=== PATIENT | male | born 1980 | race Caucasian/White ===

== ENCOUNTER 2017-09-18 09:24 | Emergency (ER) | payer MEDICAID, SELFPAY ==
[2017-09-18 09:26] VITALS: BP 152/67; PULSE 94; RESP 17; TEMP 37.2; O2SAT 98; BMI 21.2
--- NOTE | 2017-09-18 09:44 | ED.DCSUM_ITS ---
- ER Visit Summary Date of Service: 09/18/17 Chief Complaint: Right hand pain after punching a car History of Present Illness: The patient is a 37 M history of prior right hand surgery for metacarpal fracture of the ring finger. 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 He has had multiple episodes of trauma to the right hand. He is right-hand dominant. Patient states they get upset and punched a car and is complaining of pain along the right ring finger metacarpal. Where he had prior surgery. Denies other injuries. This occurred within the last 1 to hours. Physical Examination: Well-appearing male. Vital signs are stable he is afebrile. H EENT exam unremarkable. Lungs clear to auscultation bilaterally. Heart regular rate and rhythm no murmur. Abdomen soft nontender. Left upper and both lower shoulders are unremarkable nontender normal range of motion no deformities. His right shoulder, elbow and wrist are nontender. He has a contracture of his right small finger which is chronically flexed is unable to extend at 280. He has an old surgical scar along the dorsum of the ring metacarpal. He also has tenderness along the ring finger metacarpal. There is no gross bony deformity. He has decreased range of motion of the small finger but also the index long and ring fingers. There are no lacerations. There are no hematomas. He has a strong radial pulse. Skin is intact. Test Results: Right hand x-ray shows no acute abnormality read by myself. There is a orthopedic plate on the ring metacarpal. No acute fracture. There are chronic contractures. Emergency Department Course and Treatment: I discussed and went over the x-ray with the patient. He will be discharged to home. Motrin Tylenol for pain. Ice and elevate. Follow-up with his primary care physician if not improving for repeat evaluation but at this time there is no signs of fracture. Treatment Plan: [] Disposition: Discharge Impression: Acute right hand contusion History of prior right hand ring finger fracture and surgical repair with orthopedic hardware and also chronic right hand contracture This note was generated with [employer] software. It may contain incorrect words, spelling, and punctuation that were not noted in review of the chart prior to signing ED Disposition - Plan for ED Patient: Chief Complaint: Upper Extremity Injury Referrals: Luz Maria Werner PA [Primary Care Provider] -
--- NOTE | 2017-09-18 09:48 | RAD_ITS ---
STUDY: X-RAY - RIGHT HAND REASON FOR EXAM: Male, 37 years old. Pain following injury. TECHNIQUE: 4 view(s) of the hand. COMPARISON: Comparison is made with prior study dated December 27, 2015. FINDINGS: Normal radiocarpal articulation. Normal distal radioulnar joint. Normal visualized carpal bones. Normal carpal articulations Normal carpometacarpal articulation of the thumb. Normal second through fifth carpometacarpal joints. The patient is status post open reduction and internal fixation of the fourth metacarpal with the screw and sideplate fixation device. This is unchanged. Normal metacarpophalangeal joint of the thumb. Normal interphalangeal joint of the thumb. Normal proximal and distal phalanges of the thumb. Normal metacarpophalangeal joints of the second through fifth fingers. Stable flexion deformity at the proximal interphalangeal joint of the fifth digit. Normal phalanges of the second through fifth fingers. The soft tissue structures are unremarkable. RAD/Hand Min 3 Views IMPRESSION: No acute abnormality is seen. Electronically Signed: Brian Jackson MD at 10:25 EDT Tel [phone], Service support ,
--- NOTE | 2017-09-18 10:07 | ED.DEP ---
ED Disposition - Plan for ED Patient: Disposition: Home or Assisted Living Chief Complaint: Upper Extremity Injury Instructions: ED Contusion Upper Ext Referrals: Luz Maria Werner PA [Primary Care Provider] - 1 Week if not improving Additional Instructions: Elevate your right hand. Motrin and Tylenol for pain. Follow-up with your primary care physician if in 1 week this is not improving however today on your x-ray there are no signs of any fracture or dislocation.
[2017-09-18] MEDS: Ibuprofen 600 MG Tablet PO (10:13)
[2017-09-18 10:22] VITALS: PULSE 93; RESP 18; O2SAT 100
--- NOTE | 2017-09-18 10:22 | ED.RN ---
THIS NURSE REVIEWED D/C INSTRUCTIONS WITH PT. PT VERBALIZED UNDERSTANDING OF INSTRUCTIONS. PT DENIES FURTHER NEEDS OR QUESTIONS AT THIS TIME. PT AMBULATES FROM ROOM ON OWN WITHOUT ASSISTANCE FROM STAFF
== END 2017-09-18 10:23 | disposition home or self-care (01) ==
PROVIDERS: Emergency Provider Emergency Medicine; Family Provider Physician Assistant Medical; PCP Physician Assistant Medical
DX: S60.221A Contusion of right hand, initial encounter (principal); M20.091 Other deformity of right finger(s); Z98.890 Other specified postprocedural states; Z72.0 Tobacco use; W22.09XA Striking against other stationary object, initial encounter; Y93.89 Activity, other specified; Y92.89 Other specified places as the place of occurrence of the external cause; Y99.8 Other external cause status
CPT/HCPCS: 73130; 99283

== ENCOUNTER 2017-10-09 11:32 | Emergency (ER) | payer MEDICAID, SELFPAY ==
[2017-10-09 11:33] VITALS: BP 148/82; PULSE 80; RESP 16; TEMP 36.8; O2SAT 98; BMI 20.8
--- NOTE | 2017-10-09 12:11 | RAD_ITS ---
STUDY: X-RAY - RIGHT SHOULDER REASON FOR EXAM: Male, 37 years old. INJURY/PAIN. DOING YARDWORK T HEARD/FELT POP. TECHNIQUE: 4 view(s) of the shoulder. COMPARISON: None. FINDINGS: Normal glenohumeral articulation. Normal acromioclavicular joint. Normal acromion. Normal humeral head and visualized proximal humerus. The soft tissue structures are unremarkable. Normal visualized pulmonary apex. RAD/Shoulder min 2 Views IMPRESSION: Normal x-ray examination of the shoulder. Electronically Signed: Jude Wolf MD at 13:15 EDT Tel , Service support ,
[2017-10-09] MEDS: HYDROcodone Bitartrate/Apap 5/325 Tablet PO (12:23)
--- NOTE | 2017-10-09 13:24 | ED.DCSUM_ITS ---
- ER Visit Summary Date of Service: 10/09/17 Chief Complaint: Right shoulder pain History of Present Illness: The patient is a [address] Werner. He reports that he was out shoveling when he felt a pop in his right shoulder. He has a sharp, throbbing pain that is 10 out of 10 at worst 9 out of 10 currently. Is worsened by lifting. Is taken ibuprofen without relief. He denies any numbness or weakness distally. No other trauma. No fall or MVA. Physical Examination: Vitals: Stable. Afebrile. General: Well-nourished and well-developed. Head: Normocephalic atraumatic. Neck: Supple, no lymphadenopathy. No JVD. Nontender. Cardiovascular: Regular rate and rhythm. No murmurs. Respiratory: No respiratory distress. Clear to auscultation bilaterally. Abdominal: Soft, nontender, nondistended, normal bowel sounds. No guarding, rebound, or peritoneal signs. Back: Nontender. Extremities: Moderate tenderness palpation over the trapezius muscle and over the AC joint. No pain over the deltoid. There is a swollen area on the anterior surface of his shoulder. There is no contusion to suggest hematoma. He has a 2+ radial pulse. He has decreased range of motion secondary to pain active much greater than passive.. Skin: Normal color, no rash. Neurologic: Alert and oriented ?3. Cranial nerves II through XII are intact. Normal strength and sensation. Psych: Normal affect. Test Results: Right shoulder x-ray shows no acute disease. Emergency Department Course and Treatment: Patient was treated with Starrucca p.o. and is resting comfortably. He was placed in a sling. Treatment Plan: An [facility] report was obtained which was negative. He will be discharged naproxen and Starrucca. Instructed to follow-up Dr. Wilman Mejia in 1 week if not improving. Disposition: To home in improved and stable condition. Impression: 1. Right shoulder pain, acute. This note was generated with [employer] dictation software. It may contain incorrect words, spelling, and punctuation that were not noted in review of the chart prior to signing ED Disposition - Plan for ED Patient: Disposition: Home or Assisted Living Chief Complaint: Upper Extremity Injury Instructions: ED Shoulder Pain [facility] Prescriptions: Hydrocodone/Acetaminophen [Starrucca 5-325 Tablet] 1 - 2 each PO 4X/DAY PRN PRN 5 Days #20 tablet PRN Reason: Pain Referrals: Wilman Mejia MD [STAFF PHYSICIAN] - 1 Week if not improving
[2017-10-09 13:38] VITALS: PULSE 79; RESP 16; O2SAT 100
== END 2017-10-09 13:40 | disposition home or self-care (01) ==
LOC: ED 12:47
PROVIDERS: Emergency Provider Emergency Medicine; Family Provider Physician Assistant Medical; PCP Physician Assistant Medical
DX: M25.511 Pain in right shoulder (principal); J45.909 Unspecified asthma, uncomplicated; Z72.0 Tobacco use
CPT/HCPCS: 73030; 99283

== ENCOUNTER 2017-12-30 15:00 | Emergency (ER) | payer MEDICAID, SELFPAY ==
[2017-12-30 15:01] VITALS: BP 120/80; PULSE 86; RESP 16; TEMP 37.3; O2SAT 98; BMI 18.8
--- NOTE | 2017-12-30 15:52 | ED.DCSUM_ITS ---
- ER Visit Summary Date of Service: 12/30/17 Chief Complaint: Dental pain History of Present Illness: The patient is a 37 M who presents with dental pain. He initially broke a tooth about 2 weeks ago. He began to have some swelling last night. He noticed drainage from the tooth bad taste in his mouth and foul odor. He reports subjective fever this morning although did not check temperature. He denies nausea vomiting diarrhea. Physical Examination: Afebrile vitals are normal Moist mucous membranes Patient has widespread dental decay although there is significant focal decay of the right maxillary second and third molar with tenderness on percussion I do not appreciate any drainage currently I do not appreciate focal dental abscess amenable to incision and drainage Heart regular rate and rhythm Lungs clear Test Results: Not indicated Emergency Department Course and Treatment: He is allergic to penicillin. We will treat with clindamycin. He was advised on supportive care. He was advised to follow with a dentist. No worsening symptoms. He was discharged. Treatment Plan: [] Disposition: Discharge Impression: Odontalgia This note was generated with [employer] dictation software. It may contain incorrect words, spelling, and punctuation that were not noted in review of the chart prior to signing ED Disposition - Plan for ED Patient: Chief Complaint: Dental Referrals: Luz Maria Werner PA [Primary Care Provider] -
--- NOTE | 2017-12-30 15:52 | ED.DEP ---
ED Disposition - Plan for ED Patient: Chief Complaint: Dental Instructions: ED Tooth Pain Prescriptions: Clindamycin HCl [Cleocin] 300 mg PO Q8H #30 cap Referrals: Luz Maria Werner PA [Primary Care Provider] -
== END 2017-12-30 16:04 | disposition home or self-care (01) ==
PROVIDERS: Emergency Provider Emergency Medicine; Family Provider Physician Assistant Medical; PCP Physician Assistant Medical
DX: K08.89 Other specified disorders of teeth and supporting structures (principal); K02.9 Dental caries, unspecified; Z72.0 Tobacco use
CPT/HCPCS: 99282

== ENCOUNTER 2018-06-25 12:28 | Emergency (ER) | payer MEDICAID, SELFPAY ==
[2018-06-25 12:28] VITALS: BP 134/79; PULSE 92; RESP 16; TEMP 36.7; O2SAT 98; BMI 20.6
--- NOTE | 2018-06-25 13:03 | RAD_ITS ---
STUDY: X-RAY - RIGHT HAND REASON FOR EXAM: Pain at the base of the fifth digit after a fall. TECHNIQUE: 3 view(s) of the hand. COMPARISON: Radiographs 09/18/2017. FINDINGS: Normal radiocarpal articulation. Normal distal radioulnar joint. Normal visualized carpal bones. Normal carpal articulations Normal carpometacarpal articulation of the thumb. Normal second through fifth carpometacarpal joints. There is an intact orthopedic plate and screws transfixing a healed fourth metacarpal fracture. Normal metacarpophalangeal joint of the thumb. Normal interphalangeal joint of the thumb. Normal proximal and distal phalanges of the thumb. Normal metacarpophalangeal joints of the second through fifth fingers. There are flexion deformities at the proximal interphalangeal joints of the second through fifth digits. Normal phalanges of the second through fifth fingers. The soft tissue structures are unremarkable. RAD/Hand Min 3 Views IMPRESSION: Healed fracture of the fourth metacarpal with intact orthopedic hardware. Flexion deformities of the second through fifth digits. No demonstrated new fracture. Electronically Signed: Wilfredo Tello MD at 13:56 EST Tel , Service support ,
--- NOTE | 2018-06-25 15:02 | ED.VISSUMM ---
- ER Visit Summary Date of Service: 06/25/18 Chief Complaint: Right hand injury History of Present Illness: The patient is a 38 M presents with right hand injury that occurred today after a fall. Patient states he slipped and fell onto his right hand. Patient states pain is throbbing. Patient states he applied ice which made the pain worse. Patient states he applied some heat which seemed to help. Patient states he has chronic paresthesias of his right hand due to prior surgery. Patient denies any head injury or loss of consciousness. Patient denies any other injuries. Physical Examination: All signs are stable. Patient is afebrile. Patient is in no acute distress. Oral mucosa is pink and moist. Neck is supple. Trachea is midline. There is no JVD noted. Heart was regular rate and rhythm. Lungs are clear and equal bilaterally. Musculoskeletal exam reveals tenderness over the right hand. There is no edema or ecchymosis. There is no deformity noted. Range of motion was limited in all motions of the right hand secondary to pain. Capillary refill is less than 2 seconds in all digits. Sensation was diminished to light touch in all digits. The remaining physical exam is within normal limits. Test Results: X-rays of the right hand were obtained. There is no acute fracture. Emergency Department Course and Treatment: Patient was given a cockup splint. Patient was instructed to ice and elevate the right hand. Patient was instructed to follow-up with his primary care physician in 5-7 days. Patient understood and was agreeable with the plan. All questions were answered. Disposition: Discharge home Impression: Right hand contusion This note was generated with [employer] dictation software. It may contain incorrect words, spelling, and punctuation that were not noted in review of the chart prior to signing ED Disposition - Plan for ED Patient: Disposition: Home or Assisted Living Chief Complaint: Upper Extremity Injury Diagnosis: Contusion of right hand, initial encounter Instructions: ED Contusion Upper Ext Referrals: Luz Maria Werner PA [Primary Care Provider] -
--- NOTE | 2018-06-25 15:07 | ED.DCSUM_ITS ---
- ER Visit Summary Date of Service: 06/25/18 Chief Complaint: Right hand injury History of Present Illness: The patient is a 38 M presents with right hand injury that occurred today after a fall. Patient states he slipped and fell onto his right hand. Patient states pain is throbbing. Patient states he a pplied ice which made the pain worse. Patient states he applied some heat which seemed to help. Patient states he has chronic paresthesias of his right hand due to prior surgery. Patient denies any head injury or loss of consciousness. Patient denies any other injuries. Physical Examination: All signs are stable. Patient is afebrile. Patient is in no acute distress. Oral mucosa is pink and moist. Neck is supple. Trachea is midline. There is no JVD noted. Heart was regular rate and rhythm. Lungs are clear and equal bilaterally. Musculoskeletal exam reveals tenderness over the right hand. There is no edema or ecchymosis. There is no deformity noted. Range of motion was limited in all motions of the right hand secondary to pain. Capillary refill is less than 2 seconds in all digits. Sensation was diminished to light touch in all digits. The remaining physical exam is within normal limits. Test Results: X-rays of the right hand were obtained. There is no acute fracture. Emergency Department Course and Treatment: Patient was given a cockup splint. Patient was instructed to ice and elevate the right hand. Patient was instructed to follow-up with his primary care physician in 5-7 days. Patient understood and was agreeable with the plan. All questions were answered. Disposition: Discharge home Impression: Right hand contusion This note was generated with [employer] dictation software. It may contain incorrect words, spelling, and punctuation that were not noted in review of the chart prior to signing ED Disposition - Plan for ED Patient: Disposition: Home or Assisted Living Chief Complaint: Upper Extremity Injury Diagnosis: Contusion of right hand, initial encounter Instructions: ED Contusion Upper Ext Referrals: Luz Maria Werner PA [Primary Care Provider] -
--- OUTSIDE RECORDS SUMMARY | 2018-08-30 10:00 | XMS RPT_ITS ---
:1980 Author Organization OHIP Care Team Providers Name Role Phone REFERRING REFERRING, KB QUILES WO ID~[id number] Primary Care Unavailable MICAELA JOHNSON Attending Unavailable Alphonso, Luz Maria Primary Care Unavailable Ovidio Lundy Attending Unavailable Luz Maria Werner Primary Care Unavailable Jared Lyle Attending Unavailable Luz Maria Werner Primary Care Unavailable Percy Hernandez Attending Unavailable Alphonso Luz Maria Primary Care Unavailable Wiliam Dupree Attending Unavailable PROBLEMS PROBLEMS DATE TYPE CONDITION / CODE ATTENDING STATUS SOURCE 10/09/2017 Unknown M25.519 - Pain in Percy Hernandez Active [place] unspecified [facility] M25.519(ICD-10) Repository PROCEDURES PROCEDURES No Procedure Records FoundRESULTS RESULTS EMERGENCY DEPARTMENT Observed: 06/25/2018 Status: F Source: [place] SUMMARY 3:08 PM [facility] REPOSITORY [facility] Medical Records Department [address] [place] [address] Emergency Department Summary 06/25/18 1502 MR#: [id number] Acct: [id number] Name: ANALISA FERNANDEZ Jr. Rep #: [id number] : 1980 38 From: Ovidio Lundy DO PCP: Luz Maria Werner Status: REG ER - ER Visit Summary Date of Service: 06/25/18 Chief Complaint: Right hand injury History of Present Illness: The patient is a 38 M presents with right hand injury that occurred today after a fall. Patient states he slipped and fell onto his right hand. Patient states pain is throbbing. Patient states he applied ice which made the pain worse. Patient states he applied some heat which seemed to help. Patient states he has chronic paresthesias of his right hand due to prior surgery. Patient denies any head injury or loss of consciousness. Patient denies any other injuries. Physical Examination: All signs are stable. Patient is afebrile. Patient is in no acute distress. Oral mucosa is pink and moist. Neck is supple. Trachea is midline. There is no JVD noted. Heart was regular rate and rhythm. Lungs are clear and equal bilaterally. Musculoskeletal exam reveals tenderness over the right hand. There is no edema or ecchymosis. There is no deformity noted. Range of motion was limited in all motions of the right hand secondary to pain. Capillary refill is less than 2 seconds in all digits. Sensation was diminished to light touch in all digits. The remaining physical exam is within normal limits. Test Results: X-rays of the right hand were obtained. There is no acute fracture. Emergency Department Course and Treatment: Patient was given a cockup splint. Patient was instructed to ice and elevate the right hand. Patient was instructed to follow-up with his primary care physician in 5-7 days. Patient understood and was agreeable with the plan. All questions were answered. Disposition: Discharge home Impression: Right hand contusion This note was generated with [employer] dictation software. It may contain incorrect words, spelling, and punctuation that were not noted in review of the chart prior to signing ED Disposition - Plan for ED Patient: Disposition: Home or Assisted Living Chief Complaint: Upper Extremity Injury Diagnosis: Contusion of right hand, initial encounter Instructions: ED Contusion Upper Ext Referrals: Luz Maria Werner PA [Primary Care Provider] - What to do if you have Problems For any increased pain, shortness of breath, bleeding, nausea or vomiting, chest pain, or any unexpected problems, contact your Primary Care Provider. Call [facility] ([phone]) or report to the closest Emergency Room. Call 911 if necessary. 06/25/18 1508 <Electronically signed by Ovidio Lundy DO> Date Ovidio Lundy DO Cosigner Signature (If Indicated): Date CC: Luz Maria Werner HAND MIN 3 VIEWS Observed: 06/25/2018 Status: F Source: [place] 12:55 PM [facility] REPOSITORY [facility] Imaging Services [address] [place] [address] Hand Min 3 Views MR#: [id number] Acct: [id number] Name: ANALISA FERNANDEZ Kina Rep #: [id number] : 1980 M 38 From: Wilfredo Tello MD PCP: Luz Maria Werner Status: REG ER Study: Hand Min 3 Views Date of Exam: 06/25/18 Exam# [id number] Ordering Dr: Ovidio Lundy DO STUDY: X-RAY - RIGHT HAND REASON FOR EXAM: Pain at the base of the fifth digit after a fall. TECHNIQUE: 3 view(s) of the hand. COMPARISON: Radiographs 09/18/2017. FINDINGS: Normal radiocarpal articulation. Normal distal radioulnar joint. Normal visualized carpal bones. Normal carpal articulations Normal carpometacarpal articulation of the thumb. Normal second through fifth carpometacarpal joints. There is an intact orthopedic plate and screws transfixing a healed fourth metacarpal fracture. Normal metacarpophalangeal joint of the thumb. Normal interphalangeal joint of the thumb. Normal proximal and distal phalanges of the thumb. Normal metacarpophalangeal joints of the second through fifth fingers. There are flexion deformities at the proximal interphalangeal joints of the second through fifth digits. Normal phalanges of the second through fifth fingers. The soft tissue structures are unremarkable. RAD/Hand Min 3 Views IMPRESSION: Healed fracture of the fourth metacarpal with intact orthopedic hardware. Flexion deformities of the second through fifth digits. No demonstrated new fracture. Electronically Signed: Wilfredo Tello MD at 13:56 EST Tel , Service support , CC: Luz Maria Werner; Ovidio Lundy DO Glass Etcher: Signed DISCHARGE INSTRUCTION Observed: 12/30/2017 Status: F Source: [place] 3:53 PM [facility] REPOSITORY [facility] Medical Records Department [address] [place] [address] Discharge Instruction 12/30/17 1552 MR#: [id number] Acct: [id number] Name: ANALISA FERNANDEZ Jr. Rep #: [id number] : 1980 37 From: Wiliam Dupree MD PCP: Luz Maria Werner Status: REG ER ED Disposition - Plan for ED Patient: Chief Complaint: Dental Instructions: ED Tooth Pain Prescriptions: Clindamycin HCl [Cleocin] 300 mg PO Q8H #30 cap Referrals: Luz Maria Werner PA [Primary Care Provider] - What to do if you have Problems For any increased pain, shortness of breath, bleeding, nausea or vomiting, chest pain, or any unexpected problems, contact your Primary Care Provider. Call [facility] ([phone]) or report to the closest Emergency Room. Call 911 if necessary. 12/30/17 1553 <Electronically signed by Wiliam Dupree MD> Date Wiliam Dupree MD Cosigner Signature (If Indicated): Date CC: Luz Maria Werner EMERGENCY DEPARTMENT Observed: 12/30/2017 Status: F Source: [place] SUMMARY 3:52 PM [facility] REPOSITORY [facility] Medical Records Department [address] [place] [address] Emergency Department Summary 12/30/17 1550 MR#: [id number] Acct: [id number] Name: ANALISA FERNANDEZ Ruby Demarco. Rep #: [id number] : 1980 37 From: Wiliam Dupree MD PCP: Luz Maria Werner Status: REG ER - ER Visit Summary Date of Service: 12/30/17 Chief Complaint: Dental pain History of Present Illness: The patient is a 37 M who presents with dental pain. He initially broke a tooth about 2 weeks ago. He began to have some swelling last night. He noticed drainage from the tooth bad taste in his mouth and foul odor. He reports subjective fever this morning although did not check temperature. He denies nausea vomiting diarrhea. Physical Examination: Afebrile vitals are normal Moist mucous membranes Patient has widespread dental decay although there is significant focal decay of the right maxillary second and third molar with tenderness on percussion I do not appreciate any drainage currently I do not appreciate focal dental abscess amenable to incision and drainage Heart regular rate and rhythm Lungs clear Test Results: Not indicated Emergency Department Course and Treatment: He is allergic to penicillin. We will treat with clindamycin. He was advised on supportive care. He was advised to follow with a dentist. No worsening symptoms. He was discharged. Treatment Plan: [] Disposition: Discharge Impression: Odontalgia This note was generated with [employer] dictation software. It may contain incorrect words, spelling, and punctuation that were not noted in review of the chart prior to signing ED Disposition - Plan for ED Patient: Chief Complaint: Dental Referrals: Luz Maria Werner PA [Primary Care Provider] - What to do if you have Problems For any increased pain, shortness of breath, bleeding, nausea or vomiting, chest pain, or any unexpected problems, contact your Primary Care Provider. Call [facility] ([phone]) or report to the closest Emergency Room. Call 911 if necessary. 12/30/17 1552 <Electronically signed by Wiliam Dupree MD> Date Wiliam Dupree MD Cosigner Signature (If Indicated): Date CC: Luz Maria Werner EMERGENCY DEPARTMENT Observed: 10/09/2017 Status: F Source: [place] SUMMARY 5:44 PM [facility] REPOSITORY [facility] Medical Records Department [address] [place] [address] Emergency Department Summary 10/09/17 1323 MR#: [id number] Acct: [id number] Name: ANALISA FERNANDEZ Rep #: [id number] : 1980 37 From: Percy Hernandez MD PCP: Luz Maria Werner Status: DEP ER - ER Visit Summary Date of Service: 10/09/17 Chief Complaint: Right shoulder pain History of Present Illness: The patient is a [address] Werner. He reports that he was out shoveling when he felt a pop in his right shoulder. He has a sharp, throbbing pain that is 10 out of 10 at worst 9 out of 10 currently. Is worsened by lifting. Is taken ibuprofen without relief. He denies any numbness or weakness distally. No other trauma. No fall or MVA. Physical Examination: Vitals: Stable. Afebrile. General: Well-nourished and well-developed. Head: Normocephalic atraumatic. Neck: Supple, no lymphadenopathy. No JVD. Nontender. Cardiovascular: Regular rate and rhythm. No murmurs. Respiratory: No respiratory distress. Clear to auscultation bilaterally. Abdominal: Soft, nontender, nondistended, normal bowel sounds. No guarding, rebound, or peritoneal signs. Back: Nontender. Extremities: Moderate tenderness palpation over the trapezius muscle and over the AC joint. No pain over the deltoid. There is a swollen area on the anterior surface of his shoulder. There is no contusion to suggest hematoma. He has a 2+ radial pulse. He has decreased range of motion secondary to pain active much greater than passive.. Skin: Normal color, no rash. Neurologic: Alert and oriented 3. Cranial nerves II through XII are intact. Normal strength and sensation. Psych: Normal affect. Test Results: Right shoulder x-ray shows no acute disease. Emergency Department Course and Treatment: Patient was treated with [place] p.o. and is resting comfortably. He was placed in a sling. Treatment Plan: An OARRS report was obtained which was negative. He will be discharged naproxen and [place]. Instructed to follow-up Dr. Wilman Mejia in 1 week if not improving. Disposition: To home in improved and stable condition. Impression: 1. Right shoulder pain, acute. This note was generated with [employer] dictation software. It may contain incorrect words, spelling, and punctuation that were not noted in review of the chart prior to signing ED Disposition - Plan for ED Patient: Disposition: Home or Assisted Living Chief Complaint: Upper Extremity Injury Instructions: ED Shoulder Pain UKO Prescriptions: Hydrocodone/Acetaminophen [[place] 5-325 Tablet] 1 - 2 each PO 4X/DAY PRN PRN 5 Days #20 tablet PRN Reason: Pain Referrals: Wilman Mejia MD [STAFF PHYSICIAN] - 1 Week if not improving What to do if you have Problems For any increased pain, shortness of breath, bleeding, nausea or vomiting, chest pain, or any unexpected problems, contact your Primary Care Provider. Call [place] [facility] ([phone]) or report to the closest Emergency Room. Call 911 if necessary. 10/09/17 1744 <Electronically signed by Percy Hernandez MD> Date Percy Hernandez MD Cosigner Signature (If Indicated): Date CC: Luz Maria Werner SHOULDER MIN 2 VIEWS Observed: 10/09/2017 Status: F Source: [place] 12:12 PM [facility] REPOSITORY [facility] Imaging Services [address] [place] [address] Shoulder min 2 Views MR#: [id number] Acct: [id number] Name: ANALISA FERNANDEZ Jr. Rep #: [id number] : 1980 37 From: Jude Wolf MD PCP: Luz Maria Werner Status: REG ER Study: Shoulder min 2 Views Date of Exam: 10/09/17 Exam# [id number] Ordering Dr: Percy Hernandez MD STUDY: X-RAY - RIGHT SHOULDER REASON FOR EXAM: Male, 37 years old. INJURY/PAIN. DOING YARDWORK T HEARD/FELT POP. TECHNIQUE: 4 view(s) of the shoulder. COMPARISON: None. FINDINGS: Normal glenohumeral articulation. Normal acromioclavicular joint. Normal acromion. Normal humeral head and visualized proximal humerus. The soft tissue structures are unremarkable. Normal visualized pulmonary apex. RAD/Shoulder min 2 Views IMPRESSION: Normal x-ray examination of the shoulder. Electronically Signed: Jude Wolf MD at 13:15 EDT Tel , Service support , CC: Luz Maria Werner; Percy Hernandez MD Glass Etcher: Signed EMERGENCY DEPARTMENT Observed: 09/18/2017 Status: F Source: [place] SUMMARY 5:09 PM [facility] REPOSITORY [facility] Medical Records Department [address] [place] [address] Emergency Department Summary 09/18/17 0941 MR#: [id number] Acct: [id number] Name: ANALISA FERNANDEZ Jr. Rep #: [id number] : 1980 37 From: Jared Lyle MD PCP: Luz Maria Werner Status: DEP ER - ER Visit Summary Date of Service: 09/18/17 Chief Complaint: Right hand pain after punching a car History of Present Illness: The patient is a 37 M history of prior right hand surgery for metacarpal fracture of the ring finger. 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 He has had multiple episodes of trauma to the right hand. He is right- hand dominant. Patient states they get upset and punched a car and is complaining of pain along the right ring finger metacarpal. Where he had prior surgery. Denies other injuries. This occurred within the last 1 to hours. Physical Examination: Well-appearing male. Vital signs are stable he is afebrile. H EENT exam unremarkable. Lungs clear to auscultation bilaterally. Heart regular rate and rhythm no murmur. Abdomen soft nontender. Left upper and both lower shoulders are unremarkable nontender normal range of motion no deformities. His right shoulder, elbow and wrist are nontender. He has a contracture of his right small finger which is chronically flexed is unable to extend at 280. He has an old surgical scar along the dorsum of the ring metacarpal. He also has tenderness along the ring finger metacarpal. There is no gross bony deformity. He has decreased range of motion of the small finger but also the index long and ring fingers. There are no lacerations. There are no hematomas. He has a strong radial pulse. Skin is intact. Test Results: Right hand x-ray shows no acute abnormality read by myself. There is a orthopedic plate on the ring metacarpal. No acute fracture. There are chronic contractures. Emergency Department Course and Treatment: I discussed and went over the x-ray with the patient. He will be discharged to home. Motrin Tylenol for pain. Ice and elevate. Follow-up with his primary care physician if not improving for repeat evaluation but at this time there is no signs of fracture. Treatment Plan: [] Disposition: Discharge Impression: Acute right hand contusion History of prior right hand ring finger fracture and surgical repair with orthopedic hardware and also chronic right hand contracture This note was generated with [employer]ation software. It may contain incorrect words, spelling, and punctuation that were not noted in review of the chart prior to signing ED Disposition - Plan for ED Patient: Chief Complaint: Upper Extremity Injury Referrals: Luz Maria Werner PA [Primary Care Provider] - What to do if you have Problems For any increased pain, shortness of breath, bleeding, nausea or vomiting, chest pain, or any unexpected problems, contact your Primary Care Provider. Call [place] [facility] ([phone]) or report to the closest Emergency Room. Call 911 if necessary. 09/18/17 1709 <Electronically signed by Jared Lyle MD> Date Jared Lyle MD Cosigner Signature (If Indicated): Date CC: Luz Maria Werner DISCHARGE INSTRUCTION Observed: 09/18/2017 Status: F Source: [place] 5:09 PM [facility] REPOSITORY [facility] Medical Records Department [address] [place] [address] Discharge Instruction 09/18/17 1007 MR#: [id number] Acct: [id number] Name: ANALISA FERNANDEZ Jr. Rep #: [id number] : 1980 37 From: Jared Lyle MD PCP: Luz Maria Werner Status: DEP ER ED Disposition - Plan for ED Patient: Disposition: Home or Assisted Living Chief Complaint: Upper Extremity Injury Instructions: ED Contusion Upper Ext Referrals: Luz Maria Werner PA [Primary Care Provider] - 1 Week if not improving Additional Instructions: Elevate your right hand. Motrin and Tylenol for pain. Follow-up with your primary care physician if in 1 week this is not improving however today on your x-ray there are no signs of any fracture or dislocation. What to do if you have Problems For any increased pain, shortness of breath, bleeding, nausea or vomiting, chest pain, or any unexpected problems, contact your Primary Care Provider. Call [facility] ([phone]) or report to the closest Emergency Room. Call 911 if necessary. 09/18/17 1709 <Electronically signed by Jared Lyle MD> Date Jared Lyle MD Cosigner Signature (If Indicated): Date CC: Luz Maria Werner XR SHOULDER MINIMUM 2 Observed: 09/18/2017 Status: F Source: [employer] VIEWS RIGHT 3:37 PM [facility] REPOSITORY ORIGINAL XR SHOULDER MINIMUM 2 VIEWS RIGHT CLINICAL STATEMENT: pain COMPARISON: None FINDINGS:3 images of the RIGHT shoulder reveal no acute fracture or dislocation. The soft tissue structures are normal. No acute pathologic in the RIGHT hemithorax is noted. IMPRESSION:No acute process Interpreted By: Aury Barron MD Preliminary Report By: Aury Barron MD Electronically Signed By: Aury Barron MD Dictated Date: 09/18/2017 3:40:59 PM Prelim Date: 09/18/2017 3:40:59 PM Sign Date: 09/18/2017 3:41:36 PM HAND MIN 3 VIEWS Observed: 09/18/2017 Status: F Source: [place] 9:34 AM [facility] REPOSITORY [facility] Imaging Services [address] [place] [address] Hand Min 3 Views MR#: [id number] Acct: [id number] Name: ANALISA FERNANDEZ Jr. Rep #: [id number] : 1980 M 37 From: Brian Jackson MD PCP: Luz Maria Werner Status: DEP ER Study: Hand Min 3 Views Date of Exam: 09/18/17 Exam# [id number] Ordering Dr: Jared Lyle MD STUDY: X-RAY - RIGHT HAND REASON FOR EXAM: Male, 37 years old. Pain following injury. TECHNIQUE: 4 view(s) of the hand. COMPARISON: Comparison is made with prior study dated December 27, 2015. FINDINGS: Normal radiocarpal articulation. Normal distal radioulnar joint. Normal visualized carpal bones. Normal carpal articulations Normal carpometacarpal articulation of the thumb. Normal second through fifth carpometacarpal joints. The patient is status post open reduction and internal fixation of the fourth metacarpal with the screw and sideplate fixation device. This is unchanged. Normal metacarpophalangeal joint of the thumb. Normal interphalangeal joint of the thumb. Normal proximal and distal phalanges of the thumb. Normal metacarpophalangeal joints of the second through fifth fingers. Stable flexion deformity at the proximal interphalangeal joint of the fifth digit. Normal phalanges of the second through fifth fingers. The soft tissue structures are unremarkable. RAD/Hand Min 3 Views IMPRESSION: No acute abnormality is seen. Electronically Signed: Brian Jackson MD at 10:25 EDT Tel [phone], Service support , CC: Luz Maria Werner; Jared Lyle MD Glass Etcher: Signed ALLERGIES ALLERGIES DATE TYPE / CODE NAME / CODE REACTION SEVERITY SOURCE 06/25/2018 Drug Penicillins An[facility]axis [facility] /[id number] [place] [address](SNOMED (RXNORM) Repository CT) ENCOUNTERS ENCOUNTERS ADMIT/DISCHARGE ACCOUNT NUMBER ADMITTING ENCOUNTER LOCATION SOURCE CLASS 06/25/2018/06/25/19 [id number] Emergency Gaudencio Gaudencio [facility] ding:ED Repository 12/30/2017/12/31/19 [id number] [facility] ding:ED Repository 10/09/2017/10/10/19 [id number] Emergency [place] ding:ED Repository 09/18/2017/09/19/19 [id number] Emergency BBuilding:ER [address] Repository 09/18/2017/09/19/19 [id number] Emergency [address] ding:ED Repository PAYERS PAYERS ENCOUNTER GUARANTOR PAYER SUBSCRIBER SOURCE 06/25/2018 ANALISA VARGAS Primary Insurance:[facility] ANALISA FERNANDEZ Jr.[id number] [facility] Jenny FERNANDEZ Jr.: [facility] [address] Number: [id number], [id number] [place]ository [place] [address]Whw: Date:[id number] [address] [place] [address] () [address]ZV: 06/25/2018 Secondary NOT GIVENUNK [place] Insurance:SELF PAY [facility] Number: Effective Repository Date:2018-06-25 12/30/2017 ANALISA FERNANDEZ Primary Insurance:[facility] ANALISA Ratliff Jr.[address] [facility] Kwan: [facility], Number: [id number] Service Unit [id number]: [id number] Repository Date:[id number] [address] (HY) [address] [place] [address]IT: 12/30/2017 Secondary NOT GIVENUNK [place] Insurance:SELF PAY [facility] Number: Effective Repository Date:2017-12-30 10/09/2017 ANALISA FERNANDEZ Primary Insurance:[facility] ANALISA Ratliff Jr.[address] [facility] PLANPolicy .: [facility] JHONNY FRANCO, Number: [id number] Service Unit [address]Ltk: [id number] Repository Date:[id number] [address] () [address] [place] [address]AW: 10/09/2017 Secondary NOT GIVENUNK [place] Insurance:SELF PAY [facility] Number: Effective Repository Date:2017-10-09 09/18/2017 [facility] Insurance:[facility]: [facility] [id number] Repository [address] Number: [address] [place] [id number] [place], [place] [address]Fmy: (330) Date:2017-09-18 18047Tdz: [id number] [phone] (HP)Tel: (330) Name:[address] Box (HP) (WP) [address] [place] [address] [phone] (WP) [address]SU: 09/18/2017 [facility] ANALISA Ratliff Jr.[address] [facility] Jenny Demarco.: [facility] JHONNYHELIOlamar, [place] Number: [id number] [facility] [address]Wbt: [phone] [id number] Repository [phone] (HP) Date:[id number] [address] [place] [address]WA: 09/18/2017 Secondary NOT GIVENUNK [place] Insurance:SELF PAY [facility] Number: Effective Repository Date:2017-09-18
== END 2018-06-25 15:22 | disposition home or self-care (01) ==
PROVIDERS: Emergency Provider Emergency Medicine; Family Provider Physician Assistant Medical; PCP Physician Assistant Medical
DX: S60.221A Contusion of right hand, initial encounter (principal); Z72.0 Tobacco use; W01.0XXA Fall on same level from slipping, tripping and stumbling without subsequent striking against object, initial encounter; Y93.89 Activity, other specified; Y92.89 Other specified places as the place of occurrence of the external cause; Y99.8 Other external cause status
CPT/HCPCS: 73130; 99283

== ENCOUNTER 2021-03-05 04:31 | Emergency (ER) | payer MEDICAID, SELFPAY ==
[2021-03-05 04:32] VITALS: BP 135/97; PULSE 63; RESP 16; TEMP 36.3; O2SAT 98; BMI 22.4
[2021-03-05 04:34] VITALS: BP 135/97; PULSE 63; RESP 16; TEMP 36.3; O2SAT 98
--- NOTE | 2021-03-05 04:40 | EDS_ITS ---
HPI History of Present Illness Chief Complaint: Dental Informant: patient Narrative Narrative: 40-year-old male states that he is having pain in his top and bottom left molars. He states that they have been decayed for very long time. He states that he has not made an attempt to go to a dentist because he does not like dentist. He is a long-term smoker. PFSH PFSH Medical History no medical history no medical history Home Medications clindamycin HCl [Cleocin HCl] 300 mg PO Q6H #40 capsule 03/05/21 [Rx Last Taken Unknown] hydrocodone-acetaminophen 1 tab PO Q6H PRN PRN 3 Days #10 tablet 03/05/21 [Rx Last Taken Unknown] Allergy/AdvReac Type Severity Reaction Status Date / Time Penicillins Allergy Anaphylaxis Verified 06/25/18 12:30 Surgical History no surgical history no surgical history Social History (Updated 03/05/21 @ 04:[address] Colt Moseley, DO) current gender identity: male Smoking Status: Current every day smoker tobacco type: cigarettes ROS ROS ED Constitutional Constitutional ED: Denies chills or weight loss Eyes Eyes: Denies change in vision or diplopia ENT ENT ED: Reports other Details: Dental pain ; Denies ear pain, rhinorrhea or sore throat Cardiovascular Cardiovascular: Denies chest pain, orthopnea, palpitations or racing heartbeat Respiratory/Chest Respiratory/Chest: Denies cough, dyspnea or orthopnea Gastrointestinal Gastrointestinal: Denies abdominal pain, diarrhea, nausea or vomiting Genitourinary Genitourinary ED: Denies dysuria, hematuria or urinary frequency Musculoskeletal Musculoskeletal: Denies arthralgias or myalgias Integumentary Denies abscess or rash Neurologic Neurologic: Denies headache(s) or weakness Psychiatric Psychiatric: Denies anxiety, depression, suicidal ideation or suicidal thoughts Endocrine Endocrinology: Denies polydipsia, polyphagia or polyuria Allergic/Immunologic Allergic/Immunologic ED: Denies mouth swelling, tongue swelling or urticaria EXAM Physical Exam Const Vital Signs: 03/05/21 04:32 03/05/21 04:34 Temperature 97.4 F L 97.4 F L Temperature Source Temporal Temporal Pulse Rate 63 63 Respiratory Rate 16 16 Blood Pressure 135/97 H 135/97 H Blood Pressure Mean 109 109 Pulse Ox 98 98 Oxygen Delivery Method Room Air Room Air Positive well nourished and well developed General Appearance ED: well developed HEENT Reports normocephalic, head/scalp atraumatic, TM's clear and moist mucous membranes HEENT Narrative: The posterior most lower molar shows a large area of focal decay. No significant gumline swelling or abscess seen. Tenderness to percussion. Similar findings are seen on the left upper posterior molar no o verlying facial swelling or erythema seen Tympanic Membrane ED: Yes TM's clear Teeth and Gingiva: poor dentition Eyes PERRL and EOMs intact bilaterally Neck no lymphadenopathy, supple and no JVD Resp normal respiratory effort and clear to auscultation bilaterally Cardio regular rate, regular rhythm and no murmurs GI normal to inspection, nondistended, normoactive bowel sounds and non-tender Palpation: soft Back/Spine no CVA tenderness and normal ROM Extremity normal to inspection General Extremety ED: Negative for edema General Extremity: Negative for edema Neuro oriented x3 and CN's II-XII intact bilaterally Sensorium / Orientation: alert Motor Exam: strength 5/5 throughout Psych mental status grossly normal Mood & Affect: Negative for depressed or tearful Skin no rashes or lesions noted and no wounds MDM MDM MDM Narrative Medical decision making narrative: Patient was started on clindamycin. I will give him a dose of pain medication here. He really needs to see dentistry as soon as possible Discharge Plan Triage Chief Complaint: Dental ED Provider: Colt Moseley Dx/Rx/DC Orders Clinical Impression: Dental caries Instructions: ED Dental Pain Prescriptions: New clindamycin HCl [Cleocin HCl] 300 MG capsule 300 mg PO Q6H Qty: 40 RF: 0 hydrocodone-acetaminophen [hydrocodone-acetaminophen] 1 TABLET tablet 1 tab PO Q6H PRN PRN (Reason: Pain) 3 Days Qty: 10 RF: 0 Primary Care Provider: NOT,DEFINED Referrals: NOT,DEFINED [Primary Care Provider] - Activity Restrictions/Additional Instructions: You need to see a dentist as soon as possible Disposition Disposition: Home, Self Care
[2021-03-05] MEDS: HYDROcodone Bitartrate/Apap 5/325 Tablet PO (04:55)
[2021-03-05] MEDS: Clindamycin HCl 150 MG Capsule 300 MG PO (04:56)
== END 2021-03-05 05:01 | disposition home or self-care (01) ==
LOC: ED 04:56
PROVIDERS: Emergency Provider Emergency Medicine
DX: K02.9 Dental caries, unspecified (principal); F17.210 Nicotine dependence, cigarettes, uncomplicated
CPT/HCPCS: 90471; 99284

== ENCOUNTER 2021-03-06 10:40 | Emergency (ER) | payer MEDICAID, SELFPAY ==
[2021-03-06 10:41] VITALS: BP 130/65; PULSE 65; RESP 16; TEMP 36.4; O2SAT 98; BMI 22.4
--- NOTE | 2021-03-06 11:29 | ED.VIS.DENTA ---
HPI History of Present Illness Chief Complaint: Dental Informant: patient Onset/Context/Timing Onset: Days (3) Context: Gradual Onset Timing: Continuous Quality: Burning, throbbing Location: Left upper and lower molars Current Severity: Severe Maximum Severity: Severe Worsened by: Nothing Relieved by: - (Nothing) Associated Symptoms Assocated Symptom - Dental: jaw swelling, cold sensitivity and hot sensitivity; Negative for fever or face swelling Narrative Narrative: Patient presents with left-sided dental pain that has been getting worse over the past 3 days. Patient was seen here early yesterday morning and was given prescriptions for clindamycin and [place]. Patient states he has been taking these with no improvement. Patient admits to some subjective chills but denies any fevers. Patient states he tried to call a dentist today and was unable to get an appointment. Patient return to the emergency department because his pain was severe. Patient states the pain radiates into his left temporal area and left side of his neck. Patient denies any difficulty breathing or difficulty swallowing. PFSH PFSH Medical History no medical history no medical history Home Medications clindamycin HCl [Cleocin HCl] 300 mg PO Q6H #40 capsule 03/05/21 [Rx Last Taken Unknown] hydrocodone-acetaminophen 1 tab PO Q6H PRN PRN 3 Days #10 tablet 03/05/21 [Rx Last Taken Unknown] Allergy/AdvReac Type Severity Reaction Status Date / Time Penicillins Allergy Anaphylaxis Verified 03/06/21 10:43 Social History Smoking Status: Current every day smoker tobacco type: cigarettes ROS ROS ED Constitutional Constitutional ED: Reports chills and subjective; Denies fever(s) Eyes Eyes: Denies blurry vision or change in vision ENT ENT ED: Denies rhinorrhea or sore throat Cardiovascular Cardiovascular: Denies chest pain or palpitations Respiratory/Chest Respiratory/Chest: Denies cough or dyspnea Gastrointestinal Gastrointestinal: Reports nausea and vomiting Genitourinary Genitourinary ED: Denies dysuria or hematuria Musculoskeletal Musculoskeletal: Reports neck pain; Denies back pain Integumentary Denies abscess or rash Neurologic Neurologic: Reports headache(s); Denies weakness Allergic/Immunologic Allergic/Immunologic ED: Denies mouth swelling or urticaria EXAM Physical Exam Const Vital Signs: 03/06/21 10:41 Temperature 97.6 F L Temperature Source Temporal Pulse Rate 65 Respiratory Rate 16 Blood Pressure 130/65 H Blood Pressure Mean 86 Pulse Ox 98 Oxygen Delivery Method Room Air Positive well nourished and well developed General Appearance ED: well developed HEENT HEENT Narrative: There are dental caries noted over the left upper and lower second molars. There is some mild gingival edema around the left lower second molars. There is no discharge or drainage. There is tenderness to percussion over these teeth. There is no sublingual edema or evidence of Jd's angina. Mouth ED: Yes oral and palatal mucosa normal Mouth: oral and palatal mucosa normal Teeth and Gingiva: caries Throat: posterior oropharynx normal Eyes PERRL and EOMs intact bilaterally Neck no lymphadenopathy, supple and no JVD General: Negative for anterior neck swelling or submandibular swelling Lymph Lymphatic: no lymphadenopathy noted Resp normal respiratory effort and clear to auscultation bilaterally Cardio regular rate and regular rhythm Neuro oriented x3, CN's II-XII intact bilaterally, moves all extremities, no focal motor deficits and no sensory deficits noted Sensorium / Orientation: alert Psych mental status grossly normal MDM MDM MDM Narrative Medical decision making narrative: Patient was advised that he is on the proper medications. Patient was given an injection of Toradol here. Patient was instructed to continue his antibiotics and analgesics as prescribed. Patient was instructed to follow-up with his dentist in 3 to 5 days. Patient understood and was agreeable with the plan. All questions were answered. Discharge Plan Triage Chief Complaint: Dental ED Provider: Ovidio Lundy Dx/Rx/DC Orders Clinical Impression: Dental caries Instructions: ED Dental Pain, ED Dental Cavity Prescriptions: No Action clindamycin HCl [Cleocin HCl] 300 MG capsule 300 mg PO Q6H Qty: 40 RF: 0 hydrocodone-acetaminophen [hydrocodone-acetaminophen] 1 TABLET tablet 1 tab PO Q6H PRN PRN (Reason: Pain) 3 Days Qty: 10 RF: 0 Primary Care Provider: Care Physician,No Primary Referrals: Care Physician,No Primary [Primary Care Provider] - Dentist,Your [STAFF PHYSICIAN] - 3-5 Days Disposition Disposition: Home, Self Care
[2021-03-06] MEDS: Ketorolac 60 MG/2 ML Vial IM (11:39)
== END 2021-03-06 12:00 | disposition home or self-care (01) ==
PROVIDERS: Emergency Provider Emergency Medicine
DX: K02.9 Dental caries, unspecified (principal); F17.210 Nicotine dependence, cigarettes, uncomplicated; Z79.2 Long term (current) use of antibiotics
CPT/HCPCS: 96372; 99283

== ENCOUNTER 2021-08-29 22:25 | Emergency (ER) | payer MEDICAID, SELFPAY ==
[2021-08-29 22:26] VITALS: BP 130/91; PULSE 67; RESP 18; TEMP 36.6; O2SAT 100; BMI 22.4
--- NOTE | 2021-08-29 23:22 | EDS_ITS ---
HPI History of Present Illness Chief Complaint: Dental Informant: patient Onset/Context/Timing Onset: Days Context: Gradual Onset Timing: Continuous Current Severity: Mild Maximum Severity: Moderate Associated Symptoms Assocated Symptom - Dental: cold sensitivity; Negative for fever Narrative Narrative: 41-year-old male past medical history of asthma. States he has left lower jaw dental pain that started last night. Minimal swelling. No fever. No trouble swallowing or breathing. He has had similar episodes before. He has a penicillin allergy and normally is placed on clindamycin. Prior similar symptoms: Yes Recent Illness/Hospitalization: No PFSH PFSH Home Medications clindamycin HCl [Cleocin HCl] 300 mg PO Q6H #40 capsule 03/05/21 [Rx Last Taken Unknown] hydrocodone-acetaminophen 1 tab PO Q6H PRN PRN 3 Days #10 tablet 03/05/21 [Rx Last Taken Unknown] clindamycin HCl 300 mg PO 4X/DAY 10 Days #80 cap 08/29/21 [Rx Last Taken Unknown] Allergy/AdvReac Type Severity Reaction Status Date / Time Penicillins Allergy Anaphylaxis Verified 08/29/21 22:27 Social History Smoking Status: Current every day smoker tobacco type: cigarettes ROS ROS ED ROS Narrative Denies. Review of Systems ROS Unobtainable: Denies due to encephalopathy Constitutional Constitutional ED: Denies fever(s) Eyes Eyes: Denies change in vision ENT ENT ED: Denies ear pain Cardiovascular Cardiovascular: Denies chest pain Respiratory/Chest Respiratory/Chest: Denies dyspnea Gastrointestinal Gastrointestinal: Denies abdominal pain Genitourinary Genitourinary ED: Denies dysuria Musculoskeletal Musculoskeletal: Denies myalgias Integumentary Denies rash Neurologic Neurologic: Denies headache(s) Psychiatric Psychiatric: Denies depression Endocrine Endocrinology: Denies polyuria Hematologic/Lymphatic Hematologic/Lymphatic: Denies easy bruising Allergic/Immunologic Allergic/Immunologic ED: Denies urticaria EXAM Physical Exam Narrative Exam Narrative: 41-year-old male no acute distress. Vital signs stable afebrile. He has no septic or toxic. There is no significant facial swelling. H EENT exam he has very poor dentition. Several missing teeth. Several eroded teeth of the gums. Multiple areas of cavities and dental decay. His left lower jaw his last molar and premolar severely eroded tender to palpation. There is minimal gingival swelling there is no abscess. No trismus. He can open and close his mouth easily. Posterior pharynx is normal. No trouble swallowing or breathing. Neck nontender. No lymphadenopathy. Floor of his mouth is normal. Lungs are clear. Heart regular rate and rhythm no murmur. Otherwise exam unremarkable. Const Vital Signs: 08/29/21 22:26 Temperature 98 F Temperature Source Temporal Pulse Rate 67 Respiratory Rate 18 Blood Pressure 130/91 H Blood Pressure Mean 104 Pulse Ox 100 Oxygen Delivery Method Room Air Positive well nourished and well developed; Negative for obese, cachectic, contractures or unkempt General Appearance ED: well developed and NAD; Negative for unkempt, cachectic, contractures or pallor Nutritional Appearance: Negative for cachectic or obese HEENT tenderness; Negative for trauma Mouth ED: Yes oral and palatal mucosa normal, No lips normal, Yes tongue normal, Yes salivary gland normal and No salivary gland abnormal Mouth: oral and palatal mucosa normal, No lips normal, tongue normal, salivary gland normal and No salivary gland abnormal Teeth and Gingiva: abnormal tooth and associated gingiva, caries, gingiva abno rmal, poor dentition and teeth discoloration Throat: posterior oropharynx normal Eyes PERRL and EOMs intact bilaterally General Eye ED: Negative for pale conjunctiva or scleral icterus Neck no lymphadenopathy, supple and no JVD General: normal visual inspection; Negative for anterior neck swelling or tenderness Lymph Lymphatic: no lymphadenopathy noted; Negative for lymphadenopathy Chest Wall inspection of chest normal and palpation of chest normal Resp normal respiratory effort, no retractions and clear to auscultation bilaterally Cardio regular rate, regular rhythm, S1 normal heart sound, S2 normal heart sound and no murmurs GI normal to inspection, nondistended, normoactive bowel sounds, non-tender, non- distended and no masses Palpation: soft Back/Spine no CVA tenderness General Back: Negative for CVA tenderness Thoracic Spine / Upper Back: Negative for thoracic spinal tenderness or paraspinal muscle tenderness Extremity normal to inspection Neuro oriented x3, moves all extremities and no focal motor deficits Sensorium / Orientation: alert, oriented to person, oriented to place and oriented to time; Negative for orientation impaired Psych mental status grossly normal Appearance: Negative for unkempt Skin no rashes or lesions noted and no wounds General Skin Exam: Negative for pallor MDM MDM MDM Narrative Medical decision making narrative: Patient with dental decay, caries, dental pain and gingivitis. He will be placed on clindamycin. Given a dose here. 10- day prescription. [address] [place] here. Instructed use Motrin or Tylenol at home for pain. Follow-up with his dentist as soon as possible. Discharge Plan Triage Chief Complaint: Dental ED Provider: Aquiles Lyle Dx/Rx/DC Orders Clinical Impression: Dental cavities, Acute gingivitis, Pain, dental, Dental infection Instructions: Dental Abscess, ED Dental Pain, ED Dental Cavity Prescriptions: New clindamycin HCl 150 mg capsule 300 mg PO 4X/DAY 10 Days Qty: 80 RF: 0 No Action clindamycin HCl [Cleocin HCl] 300 MG capsule 300 mg PO Q6H Qty: 40 RF: 0 hydrocodone-acetaminophen [hydrocodone-acetaminophen] 1 TABLET tablet 1 tab PO Q6H PRN PRN (Reason: Pain) 3 Days Qty: 10 RF: 0 Primary Care Provider: Luz Maria Werner Referrals: [facility] [NON-STAFF] - As soon as possible Care Physician,No Primary [NON-STAFF] - Activity Restrictions/Additional Instructions: Clindamycin 4 times a day. Motrin and Tylenol for pain. Follow-up with your dentist as soon as possible. There is also a dental clinic at [facility]. Disposition Disposition: Home, Self Care
[2021-08-29] MEDS: HYDROcodone Bitartrate/Apap 5/325 Tablet PO (23:32)
[2021-08-29] MEDS: Clindamycin HCl 150 MG Capsule 300 MG PO (23:32)
== END 2021-08-29 23:34 | disposition home or self-care (01) ==
PROVIDERS: Emergency Provider Emergency Medicine; PCP Physician Assistant Medical; Visit Provider Emergency Medicine
DX: K05.00 Acute gingivitis, plaque induced (principal); K04.7 Periapical abscess without sinus; K02.9 Dental caries, unspecified; F17.210 Nicotine dependence, cigarettes, uncomplicated
CPT/HCPCS: 99283